=== PATIENT | female | born 1985 | race Caucasian/White ===

== ENCOUNTER 2020-08-19 10:34 | Outpatient (CLI) | payer OTHER, SELFPAY ==
[2020-08-28 12:56] LABS: AFP, Serum 54.2 ng/mL; Cigarette Smoker N; Estriol, Free 2.15 ng/mL; Inhibin A, Dimeric 97 pg/mL; Maternal Weight 231 lbs; Number of Fetuses 1; hCG MoM 1.23; hCG, Serum 22.9 IU/mL
== END 2020-08-19 10:35 | disposition home or self-care (01) ==
LOC: ANHBWCLAB 10:38
PROVIDERS: Visit Provider Obstetrics & Gynecology
DX: Z34.90 Encounter for supervision of normal pregnancy, unspecified, unspecified trimester (principal); Z36.89 Encounter for other specified antenatal screening; Z36.0 Encounter for antenatal screening for chromosomal anomalies; Z3A.00 Weeks of gestation of pregnancy not specified
CPT/HCPCS: 36415; 82105; 82677; 84702; 86336; 86900; 86901

== ENCOUNTER 2020-10-14 11:10 | Outpatient (CLI) | payer OTHER, SELFPAY ==
[2020-10-14 18:31] LABS: Basophils Percent Auto 0.1 % (0.2-1.2); Eosinophils Absolute Auto 0.1 K/mm3 (0-0.3); Eosinophils Percent Auto 0.9 % (0-4.4); Hematocrit 34.3 % (37.0-47.0); Hemoglobin 11.3 g/dL (12.0-15.0); Immature Granulocyte Absolute 0.04 K/mm3 (0.00-0.031); Immature Granulocyte Percent A 0.5 % (0-0.5); Lymphocytes Absolute Auto 1.34 K/mm3 (0.9-3.2); Lymphocytes Percent Auto 16.6 % (18.3-44.2); Mean Corpuscular HGB Conc 32.9 g/dl (32-36); Mean Corpuscular Hemoglobin 30.6 pg (26-34); Mean Platelet Volume 10.1 fl (7.4-10.4); Monocytes Absolute Auto 0.4 K/mm3 (0.1-0.6); Monocytes Percent Auto 5.1 % (2.6-8.5); Neutrophils Absolute Auto 6.2 K/mm3 (1.3-6.7); Neutrophils Percent Auto 76.8 % (45.5-73.1); Platelet Count Result 220 k/mm3 (150-375); Red Blood Count 3.69 M/mm3 (4.2-5.4); Red Cell Distribution Width 13.4 % (11.5-14.5); White Blood Count 8.1 K/mm3 (4.5-10.0)
[2020-10-14 18:36] LABS: Glucose 1 Hour PP 50gm Dose 145 mg/dL
== END 2020-10-14 11:11 | disposition home or self-care (01) ==
LOC: ANHBWCLAB 11:12
PROVIDERS: Visit Provider Obstetrics & Gynecology
DX: Z34.90 Encounter for supervision of normal pregnancy, unspecified, unspecified trimester (principal); Z3A.00 Weeks of gestation of pregnancy not specified
CPT/HCPCS: 36415; 82947; 85025

== ENCOUNTER 2020-12-17 09:07 | Outpatient (CLI) | payer OTHER, SELFPAY ==
[2020-12-18 09:06] LABS: Rapid Plasma Reagin Non-Reactive (NonReactive)
[2020-12-19 14:22] LABS: HIV 1 2 Ag Ab 4th Gen w Rflxs Non-reactive (Non-reactive)
== END 2020-12-17 09:08 | disposition home or self-care (01) ==
LOC: ANHBWCLAB 09:08
PROVIDERS: Visit Provider Obstetrics & Gynecology
DX: Z34.90 Encounter for supervision of normal pregnancy, unspecified, unspecified trimester (principal)
CPT/HCPCS: 36415; 86592; 87389

== ENCOUNTER 2021-01-14 15:51 | Inpatient (IN) | payer OTHER, SELFPAY ==
[2021-01-14] VITALS (7 sets, daily range): BP systolic 107–115; BP diastolic 65–73; PULSE 75–91; RESP 18; TEMP 36.5
[2021-01-14 16:43] LABS: Basophils Percent Auto 0.3 % (0.2-1.2); Eosinophils Absolute Auto 0.1 K/mm3 (0-0.3); Eosinophils Percent Auto 0.8 % (0-4.4); Hematocrit 35.5 % (37.0-47.0); Immature Granulocyte Absolute 0.03 K/mm3 (0.00-0.031); Immature Granulocyte Percent A 0.4 % (0-0.5); Lymphocytes Absolute Auto 1.56 K/mm3 (0.9-3.2); Lymphocytes Percent Auto 19.8 % (18.3-44.2); Mean Corpuscular HGB Conc 33.8 g/dl (32-36); Mean Corpuscular Hemoglobin 29.7 pg (26-34); Mean Corpuscular Volume 87.9 fl (80-100); Mean Platelet Volume 10.1 fl (7.4-10.4); Monocytes Absolute Auto 0.5 K/mm3 (0.1-0.6); Monocytes Percent Auto 6.2 % (2.6-8.5); Neutrophils Absolute Auto 5.7 K/mm3 (1.3-6.7); Neutrophils Percent Auto 72.5 % (45.5-73.1); Platelet Count Result 209 k/mm3 (150-375); Red Blood Count 4.04 M/mm3 (4.2-5.4); Red Cell Distribution Width 14.5 % (11.5-14.5); White Blood Count 7.9 K/mm3 (4.5-10.0)
[2021-01-14] MEDS: DINOPROSTONE 10 MG VAG INSERT VAGINAL (17:05)
--- NOTE | 2021-01-14 17:10 | LDADM ---
This patient, Wilmer Castro, was admitted to Labor/Delivery/Recovery 108 on 01/14/21 at 15:51. Plans for labor, pain management and were discussed with patient. Patient/family oriented to hospital policies and general routines including ID bracelet, bed and alarms, visiting hours, pain management, procedures, bathroom and other care routines, personal items, smoking policy, room service/diet and guest tray routines, security routines, and visiting hours. Patient/Family are encouraged to report perceived risks to care and to ask questions if they do not understand what they are told or what they should do. See OBIX for further documentation.
[2021-01-15] VITALS (66 sets, daily range): BP systolic 91–135; BP diastolic 45–106; PULSE 25–122; RESP 16–18; TEMP 36.2–36.7; O2SAT 81–100
[2021-01-15] MEDS: LACTATED RINGERS 1,000 ML 125 ML IV CONT ×2 (04:02→06:51)
[2021-01-15] MEDS: fentaNYL CITRATE INJ (*CRX) 100 MCG/2 ML VIAL 50 MCG IV PUSH (05:31)
--- NOTE | 2021-01-15 06:09 | WPDANESEPP ---
Anes - Eval Pre Procedure Procedure: labor epidural Date/Time: 01/15/21 06:09 Surgeon: nuzhat Pre Op Diagnosis: induction Patient Data Age: 35 Gender: F Height: 1.66 m Weight: 109.9 kg Last Vital Signs Temp 36.3 C L 01/15/21 03:58 Pulse 60 01/15/21 06:00 Resp 18 01/15/21 03:58 BP 102/52 L 01/15/21 06:00 Allergies Allergy/AdvReac Type Severity Reaction Status Date / Time No Known Allergies Allergy Verified 01/07/21 14:44 Home Medications Medication Instructions Recorded Confirmed Type docosahexaenoic acid 200 mg capsule 1 mg PO DAILY 05/28/20 01/14/21 History Laboratory Tests 01/14/21 01/14/21 01/14/21 16:36 16:37 16:37 WBC 7.9 K/mm3 K/mm3 (4.5-10.0) RBC 4.04 M/mm3 L M/mm3 (4.2-5.4) Hgb 12.0 g/dL g/dL (12.0-15.0) Hct 35.5 % L % (37.0-47.0) MCV 87.9 fl fl (80-100) MCH 29.7 pg pg (26-34) MCHC 33.8 g/dl g/dl (32-36) RDW 14.5 % % (11.5-14.5) Plt Count 209 k/mm3 k/mm3 (150-375) MPV 10.1 fl fl (7.4-10.4) Immature Gran % (Auto) 0.4 % % (0-0.5) Neut % (Auto) 72.5 % % (45.5-73.1) Lymph % (Auto) 19.8 % % (18.3-44.2) [place] % (Auto) 6.2 % % (2.6-8.5) Eos % (Auto) 0.8 % % (0-4.4) Baso % (Auto) 0.3 % % (0.2-1.2) Lymph # (Auto) 1.56 K/mm3 K/mm3 (0.9-3.2) [place] # (Auto) 0.5 K/mm3 K/mm3 (0.1-0.6) Eos # (Auto) 0.1 K/mm3 K/mm3 (0-0.3) Baso # (Auto) 0.0 K/mm3 K/mm3 (0.0-0.1) Abs Immat Gran (auto) 0.03 K/mm3 K/mm3 (0.00-0.031) Absolute Neuts (auto) 5.7 K/mm3 K/mm3 (1.3-6.7) Absolute Nucleated RBC 0.0 K/mm3 K/mm3 (0.0-0.012) Nucleated RBC % 0.0 % % (0.0-0.2) RPR Pending Blood Type B Positive Antibody Screen Negative Patient hx anesthesia problems: none Family hx anesthesia problems: none PMFSH Past Medical History Medical History Anxiety Vaginal delivery x1 Surgical History Surgical History History of tonsillectomy and adenoidectomy 1995 Family History Family History Father Acute myocardial infarction Hypercholesteremia Mother Hypercholesteremia Social History Social History Years smoked: 15 Smoking status: Former smoker Tobacco type: cigarettes Alcohol intake: current Alcohol use details: social drinker Substance use: never Gender identity (if verbalized by the patient): Female Spiritual care concerns: No Exam Day of Procedure 01/15/21 06:09
--- NOTE | 2021-01-15 07:56 | WPDOBADMIT ---
Obstetrics - Admit Note Admission Note: record reviewed. No pertinent additions to the history and/or any subsequent changes in the physical findings that are not consistent with the expected course of the were found. Additions to the history and/or subsequent changes in the physical findings follow. at 39+3 admitted 01/14 for induction of labor. Active labor started with cervidil. Currently complete/1000/0 station. Anticipate . GBS negative.
--- NOTE | 2021-01-15 07:59 | PM.OBPRVD ---
OB - Delivery Note Procedure Delivery date: 01/15/21 Procedure: Procedures Operation Date: 01/16/21 07:30 <No data on this case meets the specified criteria> events: Labor Induction Induction method: per cervidil protocol Delivery augmentation: rupture of membranes Delivery monitor: external FHT and external uterine Route of delivery: Laceration Description: None (perineal abrasion, no sutures needed) Specimen: No Quantitative Blood Loss (ml): 186 Anesthesia type: Epidural Disposition: floor [place] Baby Date of : 01/15/21 Time of : 08:27 Weeks of gestation at delivery: 39 Infant gender: Male Weight (pounds): 9 Weight (ounces): 2 presentation: vertex position: Right Occiput Anterior Placenta delivery description: Spontaneous cord vessel description: 3 Vessels, Nuchal Cord, Loose and Reduced score one minute: 8 score five minutes: 9
[2021-01-15] MEDS: OXYTOCIN 30 UNITS/NS 500 ML 30 UNITS/500 ML BAG 999 UNITS IV CONT (08:32)
[2021-01-15] MEDS: OXYTOCIN 30 UNITS/NS 500 ML 30 UNITS/500 ML BAG 125 UNITS IV CONT (09:05)
[2021-01-15 09:20] LABS: Rapid Plasma Reagin Non-Reactive (NonReactive)
[2021-01-15] MEDS: LORATADINE 10 MG TABLET PO (10:55)
[2021-01-15] MEDS: WITCH HAZEL 40 PADS 1 PAD TOPICAL (10:55)
[2021-01-15] MEDS: BENZOCAINE 20% AER SPR (*SP) 56 GM CAN 1 SPRAY TOPICAL (10:55)
--- NOTE | 2021-01-15 12:00 | WPDANESEPPF ---
Anes - Initial Pre Proc Eval Procedure: Operation Date: 01/16/21 09:00 Proposed Procedures p Post- Tubal Ligation - Tayla Bates MD Date/Time: 01/15/21 12:00 Surgeon: Tayla Bates MD Pre Op Diagnosis: induction Patient Data Age: 35 Gender: F Height: 1.66 m Weight: 109.9 kg Last Vital Signs Temp 36.3 C L 01/15/21 08:46 Pulse 92 01/15/21 10:46 Resp 18 01/15/21 03:58 BP 98/65 L 01/15/21 10:46 Pulse Ox 93 01/15/21 08:25 Allergies Allergy/AdvReac Type Severity Reaction Status Date / Time No Known Allergies Allergy Verified 01/07/21 14:44 Home Medications Medication Instructions Recorded Confirmed Type docosahexaenoic acid 200 mg capsule 1 mg PO DAILY 05/28/20 01/14/21 History Laboratory Tests 01/14/21 01/14/21 01/14/21 16:36 16:37 16:37 WBC 7.9 K/mm3 K/mm3 (4.5-10.0) RBC 4.04 M/mm3 L M/mm3 (4.2-5.4) Hgb 12.0 g/dL g/dL (12.0-15.0) Hct 35.5 % L % (37.0-47.0) MCV 87.9 fl fl (80-100) MCH 29.7 pg pg (26-34) MCHC 33.8 g/dl g/dl (32-36) RDW 14.5 % % (11.5-14.5) Plt Count 209 k/mm3 k/mm3 (150-375) MPV 10.1 fl fl (7.4-10.4) Immature Gran % (Auto) 0.4 % % (0-0.5) Neut % (Auto) 72.5 % % (45.5-73.1) Lymph % (Auto) 19.8 % % (18.3-44.2) [place] % (Auto) 6.2 % % (2.6-8.5) Eos % (Auto) 0.8 % % (0-4.4) Baso % (Auto) 0.3 % % (0.2-1.2) Lymph # (Auto) 1.56 K/mm3 K/mm3 (0.9-3.2) [place] # (Auto) 0.5 K/mm3 K/mm3 (0.1-0.6) Eos # (Auto) 0.1 K/mm3 K/mm3 (0-0.3) Baso # (Auto) 0.0 K/mm3 K/mm3 (0.0-0.1) Abs Immat Gran (auto) 0.03 K/mm3 K/mm3 (0.00-0.031) Absolute Neuts (auto) 5.7 K/mm3 K/mm3 (1.3-6.7) Absolute Nucleated RBC 0.0 K/mm3 K/mm3 (0.0-0.012) Nucleated RBC % 0.0 % % (0.0-0.2) RPR Non-reactive (NonReactive) Blood Type B Positive Antibody Screen Negative Patient hx anesthesia problems: none Family hx anesthesia problems: none PMFSH Past Medical History Medical History Anxiety Vaginal delivery x1 Surgical History Surgical History History of tonsillectomy and adenoidectomy 1995 Family History Family History Father Acute myocardial infarction Hypercholesteremia Mother Hypercholesteremia Social History Social History Years smoked: 15 Smoking status: Former smoker Tobacco type: cigarettes Alcohol intake: current Alcohol use details: social drinker Substance use: never Gender identity (if verbalized by the patient): Female Spiritual care concerns: No Anes - Eval Final PreProcedure Day of Procedure 01/15/21 12:00 Patient weight: obese Heart: regular rate and rhythm Lungs: clear to auscultation and normal air movement Airway: Mallampati scale class II Neurological: alert and oriented Last oral intake: >/= 8 hours ASA classification: II Emergent: no Anesthetic plan: proceed Anesthesia type and monitoring: regional epidural and standard monitoring Informed Consent: The patient's anesthetic plan and its attendant risks and benefits were discussed with the patient/family/POA. Questions were solicited and answers provided to the satisfaction of the patient/family/POA.
--- NOTE | 2021-01-15 14:39 | PC.NURSE ---
1153 Pt admitted to room 290 per wheelchair from labor and delivery after spontaneous vaginal delivery of viable male infant at [address] Bates. Mother is a and is choosing to breast feed infant. , FOB present. Couple oriented to room, staffing and procedures. Admission folder reviewed. Pt's VSS and assessment WNL.
[2021-01-15] MEDS: IBUPROFEN 600 MG TABLET PO ×2 (14:54→21:00)
[2021-01-15] MEDS: LANOLIN (LANSINOH) 7.5 GM CREAM 1 APPLIC TOPICAL (14:55)
[2021-01-15] MEDS: MULTIVIT/MIN/PREN/FOL AC/IRON TABLET 1 TAB PO (15:00)
[2021-01-16] VITALS (11 sets, daily range): BP systolic 100–125; BP diastolic 54–75; PULSE 60–74; RESP 16–20; TEMP 36.2–36.9; O2SAT 95–100
[2021-01-16] MEDS: IBUPROFEN 600 MG TABLET PO (03:56)
[2021-01-16 05:01] LABS: Hematocrit 33.9 % (37.0-47.0); Hemoglobin 11.1 g/dL (12.0-15.0)
--- NOTE | 2021-01-16 07:30 | PC.NURSE ---
Surgery here to take patient to preop.
--- NOTE | 2021-01-16 07:46 | P.PNOB_ITS ---
OB - PN: Subj Subjective Date/time seen: 01/16/21 07:46 Patient comments: no complaints, pain well controlled and other (Lochia similar to menses) [place] baby status: doing well OB - PN: Obj Data Labs CBC & Chem 7: 01/16/21 03:54 Labs: Laboratory Results - last 24 hr 01/14/21 01/16/21 16:37 03:54 Hgb 11.1 L Hct 33.9 L RPR Non-reactive OB - PN A/P Plan day: 1 (s/p vaginal delivery, doing well) Plan: routine care Time Spent With Patient Time: Total time spent is greater than 50% in coordination of care (as documented) at patient's floor/unit and/or counseling patient: Exam Const: General: no acute distress GI: Inspection: other (Fundus firm and nontender at umbilicus) GI Palp: Yes Soft to palpation and No Tenderness to palpation present (GI) Extrem: General: no edema
--- NOTE | 2021-01-16 07:47 | WPDHPUPDATE1 ---
History and Physical Update Update Date/Time: 01/16/21 07:47 History and Physical has been reviewed, including an updated exam of the patient. There are NO changes in the patient's condition. Risks, benefits, and alternatives have been discussed and questions answered. Patient agrees to proceed with procedure.
--- NOTE | 2021-01-16 07:47 | PM.IMHP ---
H&P: HPI History of Present Illness Date/Time: 01/16/21 07:47 s/p 01/15 who has expressed desire for sterilization throughout her . No complaints today Chief Complaint: desires sterilization Review of Systems Review of Systems: All systems reviewed & are unremarkable except as noted in HPI and below PMFSH Past Medical History Medical History Anxiety Vaginal delivery x1 Surgical History Surgical History History of tonsillectomy and adenoidectomy 1995 Family History Family History Father Acute myocardial infarction Hypercholesteremia Mother Hypercholesteremia Social History Social History Years smoked: 15 Smoking status: Former smoker Tobacco type: cigarettes Alcohol intake: current Alcohol use details: social drinker Substance use: never Gender identity (if verbalized by the patient): Female Spiritual care concerns: No Meds Home Medications and Allergies Home Medications Medication Instructions Recorded Confirmed Type docosahexaenoic acid 200 mg capsule 1 mg PO DAILY 05/28/20 01/14/21 History Allergies Allergy/AdvReac Type Severity Reaction Status Date / Time No Known Allergies Allergy Verified 01/07/21 14:44 Vital Signs Vital Signs - 24 hr 01/15/21 07:51 01/15/21 07:56 01/15/21 07:59 Temperature Pulse Rate Respiratory Rate Blood Pressure Pulse Oximetry 93 94 97 01/15/21 08:03 01/15/21 08:08 01/15/21 08:13 Temperature Pulse Rate Respiratory Rate Blood Pressure Pulse Oximetry 97 100 92 01/15/21 08:18 01/15/21 08:19 01/15/21 08:22 Temperature Pulse Rate Respiratory Rate Blood Pressure Pulse Oximetry 99 81 L 100 01/15/21 08:25 01/15/21 08:46 01/15/21 09:01 Temperature 36.3 C L Pulse Rate 107 H 73 Respiratory Rate Blood Pressure 127/72 108/63 Pulse Oximetry 93 01/15/21 09:24 01/15/21 09:31 01/15/21 09:45 Temperature Pulse Rate 65 68 63 Respiratory Rate Blood Pressure 91/45 L 96/64 L 96/65 L Pulse Oximetry 01/15/21 10:01 01/15/21 10:15 01/15/21 10:30 Temperature Pulse Rate 82 78 Respiratory Rate Blood Pressure 103/57 L 100/75 119/106 H Pulse Oximetry 01/15/21 10:46 01/15/21 12:00 01/15/21 16:20 Temperature 36.3 C L 36.2 C L Pulse Rate 92 72 70 Respiratory Rate 18 18 Blood Pressure 98/65 L 105/61 100/61 Pulse Oximetry 98 97 01/15/21 19:47 01/16/21 06:40 Temperature 36.7 C 36.6 C Pulse Rate 75 65 Respiratory Rate 16 18 Blood Pressure 111/68 111/68 Pulse Oximetry Exam Const: General: cooperative, no acute distress, well developed, alert and awake Resp: Auscultation: clear to auscultation bilaterally Cardio: Rate: regular rate Rhythm: regular rhythm GI: Inspection: non-distended GI Palp: Yes Soft to palpation, No Tenderness to palpation present (GI) and Yes Other GI palpation findings present (fundus firm nontender at umbilicus) Extrem: General: no calf tenderness and edema bilateral Psych: Mental Status: mental status grossly normal H&P: Results Labs Labs: Short CBC 01/16/21 Range/Units 03:54 Hgb 11.1 L (12.0-15.0) g/dL Hct 33.9 L (37.0-47.0) % Assessment and Plan Assessment and plan (1) Encounter for sterilization: Code(s): Z30.2 - Encounter for sterilization Status: Acute Assessment and Plan: She signed consent after risks, benefits, complications, and alternatives discussed for bilateral tubal ligation. She expressed understanding and wishes to proceed
[2021-01-16] MEDS: LACTATED RINGERS 1,000 ML 30 ML IV CONT ×2 (08:06→10:03)
--- NOTE | 2021-01-16 09:03 | W.PM.PROC2 ---
Procedure Note - Detailed Date of Procedure 01/16/21 Pre-op Diagnosis desires sterilization Post-op Diagnosis same Procedure Performed bilateral tubal ligation Surgeon Tayla Bates MD Anesthesia general Indications day 1 s/p , desiring sterilization Findings normal fallopian tubes Description of Procedure She was taken to the operating room where her epidural had been dosed. It was not giving her adequate anesthesia. So she was sat up to check the epidural site, and it was noted to not be in the correct place. So decision was made to put her under general anesthesia. General anesthesia was obtained. She was prepared and draped in the normal sterile fashion in the dorsal supine position. The infraumbilical area was tented up using 2 Allis clamps. An incision was made in the infraumbilical fold using the scalpel between the 2 Allis clamps. The subcutaneous tissue was divided. The fascia was tented up with 2 hemostats. The fascia was entered using Metzenbaum scissors. The fascial incision was extended laterally. The peritoneum was tented up with 2 hemostats and entered sharply with the Metzenbaum scissors. The left fallopian tube was palpated and grasped with a Margi clamp. The tube was followed out to the fimbriated end using [place] clamps. A defect was made in the mesosalpinx in the mid isthmic portion of the fallopian tube. Two free ties of 0 plain gut were placed. The intervening segment of tube was excised. The same procedure was then performed on the right fallopian tube. All operative sites were noted to be hemostatic. The fascia was closed using 0 Vicryl in a running fashion. The subcutaneous tissue was reapproximated using 3-0 Vicryl. The skin was closed using 4-0 Monocryl in subcuticular fashion. She tolerated procedure well. Sponge, lap, needle, and instrument counts were correct x2. She was taken to the recovery room in stable condition. Estimated Blood Loss 10 Drains No Packing No Pathology yes Complications No immediate complications Condition stable Disposition PACU
[2021-01-16] MEDS: KETOROLAC 30 MG/ML VIAL (*BKC) IV PUSH (09:29)
--- NOTE | 2021-01-16 10:02 | P.DS_ITS ---
DS: Admitting Diagnosis Admitting Diagnosis induction of labor DS: Discharge Diagnosis Discharge Diagnosis (1) Encounter for sterilization: Code(s): Z30.2 - Encounter for sterilization Status: Acute (2) Vaginal delivery: Code(s): O80 - Encounter for full-term uncomplicated delivery Status: Acute OB - DS: Summary OB Procedures : None OB Procedures Intrapartum: Spontaneous Vag Delivery OB Procedures: : P.P. tubal ligation Peripartum Data Procedures: Procedures Operation Date: 01/16/21 09:00 Actual Procedure Side Surgeon p Post- Tubal Ligation Not Applicable Tayla Bates MD Time Spent with Patient Time attestation: Total time spent providing and/or coordinating discharge services: DS: Data Data Completed and Pending Pending studies at discharge: Pending at discharge 01/16/21 09:38 Surgical [PTH] Routine Labs on day of discharge: Labs from last 24 hours 01/16/21 03:54 Hgb 11.1 L Hct 33.9 L Discharge Plan Discharge Attending physician on discharge: Tayla Bates Discharging Clinician: Tayla Bates Patient Disposition: Home, Self-Care Activity: may shower and pelvic rest Diet: as tolerated Wound Care Instructions: incision open to air Patient Instructions: Antibiotic Form Stand Alone Forms: General Discharge Information Follow-up/Referrals: Tayla Bates MD [Physician] - 1 Week Discharge Medications: New hydrocodone-acetaminophen 5-325 mg Tablet 1 tablet PO Q4H PRN (Reason: Moderate Pain (4-6)) Qty: 30 RF: 0 ibuprofen 600 mg Tablet 600 mg PO Q6H PRN (Reason: Cramping) Qty: 60 RF: 0 Continued DHA 200 mg capsule 1 mg PO DAILY RF: 0 Date of admission: 01/14/21 15:51 Primary Care Provider: PHYSICIAN,RESIDENTIAL SALES EXECUTIVE Admitting Provider: Tayla Bates Attending physician on admission: Tayla Bates Condition: Stable
[2021-01-16] MEDS: fentaNYL CITRATE INJ (*CRX) 100 MCG/2 ML VIAL 25 MCG IV PUSH ×2 (10:16→10:24)
--- NOTE | 2021-01-16 11:05 | PC.NURSE ---
Pt received from PACU per bed. Alert and oriented x3.
--- NOTE | 2021-01-16 11:30 | PC.NURSE ---
Observed mother is able to independently latch infant with appropriate positioning/alignment. Mother has used a nipple shield a few times for latch, she will remove shield after a few minutes once infant draws out nipple and is able to latch and complete feeding. Infant has a slightly tight frenulum, he is able to thrust tongue past gum ridge. She reports nipple tenderness at times which she feels is less as infant is more eager to feed. She is feeding as required and waking infant to feed if needed. Infant is feeding as required, and is currently meeting outcomes for weight, output, jaundice and feeding frequencies. Mother states she feels confident to continue effective at home. Reviewed transition to breast milk, signs of adequate intake, and engorgement/relief. Instructed to call ICP if intake/output less than required. Reviewed regular medications mother is taking. Information provided per [place]. Reviewed community resources on the [facility] website and in the Mom/Baby guide. Information on outpatient services provided. Mother has no further questions at this time.
--- NOTE | 2021-01-16 11:57 | WPDANLDPN2 ---
Anes-Prog Note L&D Date/Time: 01/16/21 11:57 Comfortable throughout: labor and delivery Neuraxial method: epidural Neuro status: Neuro function grossly intact. Cardiovascular status: normal Respiratory status: normal Airway patency: baseline Mental status: baseline Post-Op hydration status: normal Vital Signs: Last Vital Signs Temp 36.4 C L 01/16/21 10:03 Pulse 64 01/16/21 11:00 Resp 20 01/16/21 11:00 BP 117/75 01/16/21 11:00 Pulse Ox 95 01/16/21 11:00 Pain score (VAS): 0 I/O: Intake & Output 01/15/21 01/16/21 01/16/21 23:59 07:59 15:59 Intake Total 550 Balance 550 Post-procedural complaints: none Patient feedback: Patient satisfied with anesthetic care.
[2021-01-19 11:58] VITALS: BP 109/63; PULSE 66; RESP 20; TEMP 36.6; O2SAT 100
== END 2021-01-16 16:20 | disposition home or self-care (01) | DRG 798 ==
LOC: ANHLDR 01-15 08:55 → ANHOB2 01-15 12:10
PROVIDERS: Admitting Provider Obstetrics & Gynecology; Visit Provider Obstetrics & Gynecology
PROC: 0UB70ZZ Excision of Bilateral Fallopian Tubes, Open Approach (ICD-10-PCS; CPT 58605; principal; 2021-01-16 09:00)
DX: O76 Abnormality in fetal heart rate and rhythm complicating labor and delivery (principal); Z37.0 Single live birth; O69.81X0 Labor and delivery complicated by cord around neck, without compression, not applicable or unspecified; Z3A.39 39 weeks gestation of pregnancy; Z30.2 Encounter for sterilization
CPT/HCPCS: 36415; 85014; 85018; 85025; 86592; 86850; 86900; 86901; 88302; A9270; J0330; J1100; J1885; J2250; J2405; J2590; J2704; J2795; J3010; J7120